=== PATIENT | female | born 1960 | race Caucasian/White ===

== ENCOUNTER 2018-03-09 08:35 | Outpatient (CLI) | payer BC ==
--- NOTE | 2018-03-09 10:40 | MRI ---
RIGHT KNEE MRI WITH AND WITHOUT IV CONTRAST: History: 57-year-old female with history of soft tissue mass, parameniscal cyst. Technique: Multiplanar, multisequence MRI examination of the right knee was performed with soft tissue mass prot ocol with and without contrast. FINDINGS: There is an approximately 1.1 x 4.8 x 3 cm diameter loculated cystic mass lateral to the fibular graeme ateral ligament. The underlying lateral meniscus appears within normal limits without evidence of a t ear. I favor this being a septated ganglion cyst. There is some patellar condromalacia with some cart ilage loss and subchondral cystic changes. There is a small focus of marrow edema involving the anter ior medial femoral condyle, possibly related to mild bone contusion. There is some minimal fat strand ing in the superior lateral aspect of Hoffa's fat which can be seen in association with patellar tend on and lateral femoral condyle friction syndrome. The medial meniscus is unremarkable. The cruciate l igaments are intact. Medial and lateral collateral ligaments are intact. IMPRESSION: Multiseptated cystic mass accounting for the palpable finding lateral to the fibular collateral ligam ent, evidence for a complicated ganglion cyst. Evidence for patellar tendon and lateral femoral condy le friction syndrome. Chondromalacia patella. Small focus of minimal marrow signal involving the supe rficial aspect of the anterior medial femoral condyle of uncertain etiology, possible mild contusion. No evidence for other significant acute internal derangement. Small amount of fluid within the popli teal fossa. POS: [facility]
== END 2018-03-09 08:36 | disposition home or self-care (01) ==
LOC: TBSIIMAG 08:35
PROVIDERS: ATTEND Orthopaedic Surgery
DX: M67.461 Ganglion, right knee (principal); M22.41 Chondromalacia patellae, right knee

== ENCOUNTER 2018-06-17 08:52 | Outpatient (CLI) | payer BC ==
--- NOTE | 2018-06-17 11:20 | RAD ---
UPPER GI EXAMINATION DUAL COLUMN: Date: )06/17/18 HISTORY: Stomach pain, nausea and vomiting. COMPARISON: None. TECHNIQUE/FINDINGS: The patient is brought to the fluoroscopy suite. All questions answered. Summer Counselor view of the abdomen de monstrates moderate stool burden throughout the colon. Phleboliths in the pelvis. Mild facet arthrosi s lower lumbar spine. Patient was initially given gas-forming crystals. Patient tolerated this well. Next, the patient was given thick liquid barium. Primary and secondary peristalsis was normal. No reflux. No extrinsic mass effect. No diverticulum. Next, the patient was given a barium tablet, which passed with ease. Next, patient was put in the TAYLOR position and given thin liquid barium to continuously drink. The pat ient tolerated this well. Normal primary and secondary peristalsis. No reflux. No hiatal hernia. Proximal small bowel rotation is normal. There is abnormal thickening of the stomach and mucosal fold s throughout the gastric fundus, body, and antrum. IMPRESSION: 1. Findings indicating chronic gastritis. 2. Normal primary and secondary esophageal peristalsis. No evidence of dysphagia. 3. No hiatal hernia nor significant reflux during the exam. Fluoro Time: 2.3 minutes. Dose Area Product: 912 mGy*cm^2. POS: [facility]
== END 2018-06-17 08:53 | disposition home or self-care (01) ==
LOC: RAD 08:52
PROVIDERS: ATTEND Internal Medicine Gastroenterology
DX: K21.9 Gastro-esophageal reflux disease without esophagitis (principal)
CPT/HCPCS: 74241

== ENCOUNTER 2018-08-19 13:28 | Outpatient (CLI) | payer BC | END 2018-08-19 13:29 | disposition home or self-care (01) | LOC: BICMAMMO 13:28 | PROVIDERS: ATTEND Obstetrics & Gynecology | DX: Z12.31 Encounter for screening mammogram for malignant neoplasm of breast (principal) | CPT/HCPCS: 77063; 77067 ==

== ENCOUNTER 2021-04-09 12:18 | Outpatient (CLI) | payer BC | END 2021-04-09 12:19 | disposition home or self-care (01) | LOC: BICRAD 12:18 | PROVIDERS: ATTEND Internal Medicine | DX: R05 Cough (principal) | CPT/HCPCS: 71046 ==